=== PATIENT | female | born 1990 | race Caucasian/White ===

== ENCOUNTER 2016-08-27 12:45 | Emergency (ER) | payer SELFPAY ==
--- NOTE | 2016-08-27 13:41 | ER Document Report ---
ED Medical Screen (RME) - General Chief Complaint: Anxiety Stated Complaint: PSYCH EVAL Time Seen by Provider: 08/27/16 13:37 Notes: Patient is here with her fianc to be checked for being forgetful and not acting herself. Patient has a history of mental conditions for which she is on Adderall, Effexor, and then Topamax for headaches. Patient was on Abilify but that has been discontinued and she is taking the Effexor in place of that. Her fianc relates that she has been acting very unusual for the past few days. She has been very emotional and at times in tears for no particular reason. Yesterday she seems somewhat better than usual and she and her fianc went and donated plasma, but after they got back home, the patient went through a spell when she would not answer any questions she was asking her and saying very strange things. He relates that she once attempted suicide about 3 or 4 years ago. TRAVEL OUTSIDE OF THE [place] IN LAST 30 DAYS: No - Related Data Allergies/Adverse Reactions: No Known Allergies Allergy (Unverified 08/27/16 12:53) Past Medical History - Social History Chew tobacco use (# tins/day): No Frequency of alcohol use: None Drug Abuse: None Renal/ Medical History: Denies: Hx Peritoneal Dialysis Psychiatric Medical History: Reports: Hx Attention Deficit Hyperactivity Disorder, Hx Depression Surgical Hx: Negative - Immunizations Hx Diphtheria, Pertussis, Tetanus Vaccination: No Physical Exam - Vital signs Vitals: Temp Pulse Resp BP Pulse Ox 98.2 F 102 H 20 130/88 H 97 08/27/16 12:54 08/27/16 12:54 08/27/16 12:54 08/27/16 12:54 08/27/16 12:54 Course - Vital Signs Vital signs: Temp Pulse Resp BP Pulse Ox 98.2 F 102 H 20 130/88 H 97 08/27/16 12:54 08/27/16 12:54 08/27/16 12:54 08/27/16 12:54 08/27/16 12:54 Doctor's Discharge - Discharge Instructions: Anxiety ([facility])
--- NOTE | 2016-08-27 14:17 | ER Document Report ---
ED General - General Chief Complaint: Anxiety Stated Complaint: PSYCH EVAL Time Seen by Provider: 08/27/16 13:37 Mode of Arrival: Ambulatory Information source: Patient, Relative - fiance TRAVEL OUTSIDE OF THE [place] IN LAST 30 DAYS: No - HPI Patient complains to provider of: altered mental status Onset: Yesterday Onset/Duration: Gradual Quality of pain: No pain Associated symptoms: Nausea Exacerbated by: Denies Relieved by: Denies Similar symptoms previously: No Notes: Patient is here with her fianc to be checked for being forgetful and not acting herself. Patient has a history of mental illness for which she is on Adderall, Effexor, and then Topamax for headaches. Patient was on Abilify but that has been discontinued and she is taking the Effexor in place of that. Her fianc relates that she has been acting very unusual for the past few days. She has been very emotional and at times in tears for no particular reason. Yesterday she seems somewhat better than usual and she and her fianc went and donated plasma, but after they got back home, the patient went through a spell when she would not answer any questions she was asking her and saying very strange things. He relates that she once attempted suicide about 3 or 4 years ago. Patient also stated in triage area that she from [facility], however she grew up in [facility] [place], during my evaluation while her fianc was talking about this she became very frustrated, put her hands over her face, and then started stating in clear Algerian "I am sorry but Algerian is not my first language, can you repeat your question" - Related Data Allergies/Adverse Reactions: No Known Allergies Allergy (Unverified 08/27/16 12:53) Past Medical History - General Information source: Patient, Relative - fiance - Social History Smoking Status: Former Smoker Chew tobacco use (# tins/day): No Frequency of alcohol use: None Drug Abuse: None Family History: Reviewed & Not Pertinent Renal/ Medical History: Denies: Hx Peritoneal Dialysis Psychiatric Medical History: Reports: Hx Attention Deficit Hyperactivity Disorder, Hx Depression Surgical Hx: Negative - Immunizations Hx Diphtheria, Pertussis, Tetanus Vaccination: No Review of Systems - Review of Systems Constitutional: No symptoms reported EENT: No symptoms reported Cardiovascular: No symptoms reported Respiratory: No symptoms reported Gastrointestinal: Nausea Genitourinary: No symptoms reported Female Genitourinary: No symptoms reported Musculoskeletal: No symptoms reported Skin: No symptoms reported Hematologic/Lymphatic: No symptoms reported Neurological/Psychological: See HPI -: Yes All other systems reviewed and negative Physical Exam - Vital signs Vitals: Temp Pulse Resp BP Pulse Ox 98.2 F 102 H 20 130/88 H 97 08/27/16 12:54 08/27/16 12:54 08/27/16 12:54 08/27/16 12:54 08/27/16 12:54 Interpretation: Normal - General General appearance: Appears well, Alert - HEENT Head: Normocephalic, Atraumatic Eyes: Normal Pupils: PERRL - Respiratory Respiratory status: No respiratory distress Chest status: Nontender Breath sounds: Normal Chest palpation: Normal - Cardiovascular Rhythm: Regular Heart sounds: Normal auscultation Murmur: No - Abdominal Inspection: Normal Distension: No distension Bowel sounds: Normal Tenderness: Nontender Organomegaly: No organomegaly - Back Back: Normal, Nontender - Extremities General upper extremity: Normal inspection, Nontender, Normal color, Normal ROM , Normal temperature General lower extremity: Normal inspection, Nontender, Normal color, Normal ROM , Normal temperature, Normal weight bearing. No: Corinna's sign - Neurological Neuro grossly intact: Yes Cognition: Normal Orientation: AAOx4 [place] Coma Scale Eye Opening: Spontaneous Thomas Coma Scale Verbal: Oriented Thomas Coma Scale Motor: Obeys Commands [place] Coma Scale Total: 15 Speech: Normal Motor strength normal: LUE, RUE, LLE, RLE Sensory: Normal - Psychological Associated symptoms: Irritable, Other - odd affect, when asked a question she is unable to answerr and looks to fiance for answers - Skin Skin Temperature: Warm Skin Moisture: Dry Skin Color: Normal Course - Re-evaluation Re-evalutation: 08/27/16 16:25 Patient with signs and symptoms consistent with acute psychosis, she was seen and evaluated by mental health social studies teacher who agrees, IVC paperwork has been completed and patient will be held in the emergency room for further evaluation and treatment, otherwise medically stable for transfer or discharge - Vital Signs Vital signs: Temp Pulse Resp BP Pulse Ox 98.2 F 102 H 20 130/88 H 97 08/27/16 12:54 08/27/16 12:54 08/27/16 12:54 08/27/16 12:54 08/27/16 12:54 - Laboratory Result Diagrams: 08/27/16 14:20 08/27/16 14:20 Laboratory results interpreted by me: 08/27/16 08/27/16 14:05 14:20 Carbon Dioxide 21 L AST 13 L Urine Protein 30 H Urine Ketones 80 H Urine Blood SMALL H Salicylates < 1.0 L Acetaminophen < 10 L Discharge - Discharge Clinical Impression: Acute psychosis Condition: Stable Disposition: PSYCH HOSP/UNIT Instructions: Anxiety ([facility])
[2016-08-27 14:35] LABS: ABSOLUTE LYMPHOCYTES (AUTO) 2.5 10^3/uL (0.5-4.7); ABSOLUTE MONOCYTES (AUTO) 0.6 10^3/uL (0.1-1.4); ABSOLUTE NEUT (AUTO) 6.1 10^3/uL (1.7-8.2); BASOPHILS % (AUTO) 0.4 % (0-2); EOSINOPHILS % (AUTO) 0.3 % (0-6); HEMATOCRIT 46.3 % (36.0-47.0); HEMOGLOBIN 15.3 g/dL (12.0-15.5); HGB HCT DIFFERENCE -0.4; LYMPHOCYTES % (AUTO) 27.2 % (13-45); MEAN CORPUSCULAR HEMOGLOBIN 29.4 pg (27.0-33.4); MEAN CORPUSCULAR VOLUME 89 fl (80-97); MONOCYTES % (AUTO) 6.6 % (3-13); RED CELL DISTRIBUTION WIDTH 13.5 % (11.5-14.0); SEGMENTED NEUTROPHILS % (AUTO) 65.5 % (42-78); WHITE BLOOD COUNT 9.2 10^3/uL (4.0-10.5)
[2016-08-27 14:37] LABS: APPEARANCE,URINE SLIGHTLY-CLOUDY; BILIRUBIN,URINE NEGATIVE (NEGATIVE); GLUCOSE, URINE NEGATIVE (NEGATIVE); KETONES,URINE 80 mg/dL (NEGATIVE); LEUKOCYTE ESTERASE,URINE NEGATIVE (NEGATIVE); NITRITE,URINE NEGATIVE (NEGATIVE); PROTEIN,URINE 30 mg/dL (NEGATIVE); URINE SPECIFIC GRAVITY 1.032; UROBILINOGEN,URINE NEGATIVE mg/dL (<2.0)
[2016-08-27 14:51] LABS: ALANINE AMINOTRANSFERASE 25 U/L (9-52); ALKALINE PHOSPHATASE 92 U/L (38-126); ANION GAP 13 (5-19); ASPARTATE AMINO TRANSFERASE 13 U/L (14-36); BILIRUBIN,DIRECT 0.2 mg/dL (0.0-0.4); BILIRUBIN,TOTAL 0.9 mg/dL (0.2-1.3); BLOOD UREA NITROGEN 11 mg/dL (7-20); CALCIUM 9.3 mg/dL (8.4-10.2); CARBON DIOXIDE 21 mmol/L (22-30); CHLORIDE 103 mmol/L (98-107); CREATININE RESULT 0.66 mg/dL (0.52-1.25); GLUCOSE 84 mg/dL (75-110); POTASSIUM 4.1 mmol/L (3.6-5.0); SODIUM 137.2 mmol/L (137-145); TOTAL PROTEIN 6.8 g/dL (6.3-8.2)
[2016-08-27 14:52] LABS: ALCOHOL < 10 mg/dL (NONE DETECTED)
[2016-08-27 14:54] LABS: URINE BARBITURATES SCREEN NEGATIVE; URINE METHADONE SCREEN NEGATIVE; URINE OPIATES LOW NEGATIVE; URINE PHENCYCLIDINE SCREEN NEGATIVE
[2016-08-27] MEDS ORDERED: BENZTROPINE MESYLATE INJ 2 MG/2 ML AMPULE IM SCH (17:00)
[2016-08-27] MEDS: HALOPERIDOL LACTATE INJ 5 MG/1 ML VIAL IM SCH ×2 (17:46→23:04)
--- NOTE | 2016-08-27 18:04 | ER Document Report ---
ED Psych Disorder / Suicide - General Mode of Arrival: Ambulatory TRAVEL OUTSIDE OF THE [place] IN LAST 30 DAYS: No <LIZZY JAIMES - Last Filed: 08/27/16 17:53> - General Information source: Patient, Relative, Friend, [facility] Records - [facility] Patient complains to provider of: Bizarre behavior Onset: Yesterday Onset was: Gradual Severity: None Suicide Risk Factors: Frightened friends/family, Substance abuse, Other mental health dx. Normal mood: Yes - today during reevaluation Associated symptoms: Normal affect, Normal mood Similar symptoms previously: No Recently seen / treated by doctor: Yes <AMY CORDERO - Last Filed: 08/28/16 10:20> <ANAYELI DELGADO - Last Filed: 08/28/16 10:39> - General Chief Complaint: Anxiety Stated Complaint: PSYCH EVAL Time Seen by Provider: 08/27/16 13:37 - [facility] Notes: Patient is here with her fianc to be checked for being forgetful and not acting herself. Patient has a history of mental conditions for which she is on Adderall, Effexor, and then Topamax for headaches. Patient was on Abilify but that has been discontinued and she is taking the Effexor in place of that. Her fianc relates that she has been acting very unusual for the past few days. She has been very emotional and at times in tears for no particular reason. Yesterday she seems somewhat better than usual and she and her fianc went and donated plasma, but after they got back home, the patient went through a spell when she would not answer any questions she was asking her and saying very strange things. He relates that she once attempted suicide about 3 or 4 years ago. When patient was asked if she knew what the date was; she stated yes. When patient was asked the date again, she stated she did not know. Patient was asked what day it was, she stated she did not know. Patient was reminded she told clinician she knew what the date was; patient was asked what her answer to that is. Patient stated "today." When asked what year it was she stated 2016. When asked what month it was, she originally stated she did not know then turned her head (affect went from tearful to flat) patient stated in loud, angry voice "August." Patient became very tearful and was unable to answer any further questions. When asked if the patient's mother could leave to continue the evaluation, patient yelled "no" then stated "stop talking." Patient is alert however does orientation appears to be questionable. Patient is unable to answer without crying, face and grunting. Patient responds in only one or 2 word answers. Mood is labile with tearful affect. Patient is demonstrating behavior congruent with responding to internal stimuli. This is evidenced by disorganized thought process, poor eye contact, the controlling conversational speech. At this time is unclear if patient is suffering from delusions. Currently all cognitive functioning is impaired. 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 Patient's cognitive functioning is currently impaired from acute psychosis. At this time is unclear if this is from organic or substance. Patient will be reevaluated. Dr. Leone was consulted and the care management of this patient; attending physician is in agreement with recommendations and disposition (LIZZY JAIMES) Conducted check in with patient who is a 25 year old female under IVC after she presented with concerns related to bizarre behaviors/possible [psychosis. Patient this morning is A&O. Mood is euthymic, although guarded with information. Patient maintains she does not and has not smoked marijuana, but does vape. She states she purchased an oil to put in her nicotine vape which was supposed to have a calming effect. Patient and her fiance who is bedside report she has used this specific oil over 20 times with no effects congruent to this episode. Patient denies feeling similar to how she felt yesterday. Patient is able to communicate verbally, remain on topic and track conversation. Patient's fiance is bedside and states she is "more like herself. " Patient denies SI/HI. Patient denies A/V H; delusions not noted. Thought processes were organized and linear. Conversational speech was WNL for prosody. Intellectual abilities do not appear to be impaired. Attention and focus were fair. Insight, judgment, and impulse control were poor to fair. Diagnosis: ADHD per history Patient is psychiatrically cleared for discharge and recommended for rescind IVC. Patient no longer meets criteria for IVC per the [id number] as she is WNL for mental status, no longer appears to be in an acute event, and denies SI/HI. Patient's fiance is in agreement to take the patient home and watch her and assist her in follow up. I consulted with Dr. Leone in regards to the care and management of this patient. (AMY CORDERO) - Related Data Allergies/Adverse Reactions: No Known Allergies Allergy (Unverified 08/27/16 12:53) Past Medical History - General Information source: Patient, Relative - fiance - Social History Smoking Status: Former Smoker Chew tobacco use (# tins/day): No Frequency of alcohol use: None Drug Abuse: None Family History: Reviewed & Not Pertinent Renal/ Medical History: Denies: Hx Peritoneal Dialysis Psychiatric Medical History: Reports: Hx Attention Deficit Hyperactivity Disorder, Hx Depression Surgical Hx: Negative - Immunizations Hx Diphtheria, Pertussis, Tetanus Vaccination: No <LIZZY JAIMES - Last Filed: 08/27/16 17:53> - Social History Drug Abuse: Marijuana Patient has suicidal ideation: No Patient has homicidal ideation: No <AMY CORDERO - Last Filed: 08/28/16 10:20> Course - Laboratory Result Diagrams: 08/27/16 14:20 08/27/16 14:20 <LIZZY JAIMES - Last Filed: 08/27/16 17:53> - Laboratory Result Diagrams: 08/27/16 14:20 08/27/16 14:20 <AMY CORDERO - Last Filed: 08/28/16 10:20> - Laboratory Result Diagrams: 08/27/16 14:20 08/27/16 14:20 <ANAYELI DELGADO - Last Filed: 08/28/16 10:39> - Vital Signs Vital signs: Temp Pulse Resp BP Pulse Ox 99.0 F 83 16 119/69 98 08/28/16 06:48 08/28/16 06:48 08/28/16 06:48 08/28/16 06:48 08/28/16 06:48 - Laboratory Laboratory results interpreted by tn: 08/27/16 08/27/16 14:05 14:20 Carbon Dioxide 21 L AST 13 L Urine Protein 30 H Urine Ketones 80 H Urine Blood SMALL H Salicylates < 1.0 L Acetaminophen < 10 L Discharge <LIZZY JAIMES - Last Filed: 08/27/16 17:53> <AMY CORDERO - Last Filed: 08/28/16 10:20> <ANAYELI DELGADO - Last Filed: 08/28/16 10:39> - Discharge Clinical Impression: Acute psychosis Condition: Stable Disposition: HOME, SELF-CARE Instructions: Anxiety ([facility]) Additional Instructions: Altered Mental Status An altered mental status is a change in the normal functioning of the brain. This alteration of function can range from minor decreased brain function with some forgetfulness and confusion to complete loss of consciousness and coma. There are many possible causes of an altered mental status and include brain injuries such as trauma or strokes, problems with oxygen supply to the brain, fever and infections of the brain and/or elsewhere in the body, metabolic abnormalities such as low or high blood sugar, overdoses or excessive medication ingestion, and mental and psychiatric illnesses. Sometimes the altered mental status resolves and a definite cause is not determined. If a cause for your altered mental status was found, it has likely been corrected. Your evaluation has not shown any condition that requires that you be admitted to the hospital. It is believed that you are safe to leave and return to your home. If you have a return of your symptoms, you should return for re-evaluation. Please follow up with a provider of your choice. You have been provided a list of resources to assist you in doing so. Please return to the ER if your symptoms worsen. Referrals: [facility] [Provider Group] - Follow up in 3-5 days
--- NOTE | 2016-08-28 09:20 | ER Document Report ---
Doctor's Note Notes: 08/28/16 09:20 I have evaluated this patient this am and has no c/o at this time. Feels all of their needs are being met and physical exam is normal. Awaiting dispositon per mental health. 08/28/16 10:39 Pt being evaluated by mental health. 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 She is cooperative this morning and is no longer psychotic or having any SI. Mental health is recommending discharge with follow-up at her outpatient mental health center. Given strict return precautions and she understands
[2016-08-28 11:42] VITALS: BP 128/83
== END 2016-08-28 11:00 | disposition home or self-care (01) ==
LOC: ER 12:45
DX: F23 Brief psychotic disorder (principal); F41.9 Anxiety disorder, unspecified; R41.82 Altered mental status, unspecified
CPT/HCPCS: 99283; 96372; 36415; 80307 ×4; 84703; 85025; 80053; 81001; J0515; J1630